=== PATIENT | male | born 1965 | race Caucasian/White ===

== ENCOUNTER 2016-12-30 06:32 | Inpatient (IN) | payer OTHER ==
[~2016-12-30] VITALS: Ht 185.4 cm; Wt 206.0 kg
[2016-12-30] VITALS (7 sets, daily range): BP systolic 108–170; BP diastolic 68–94
--- NOTE | ~2016-12-30 | PR ---
[place], [place] PROGRESS NOTE NAME: GABRIELLE BRITT UNIT #: [id number] ROOM: 401 DOCTOR: IRAIS SAMUELS MD,KARUNA BIRTHDATE: [birth year] DOS: 01/03/2017 PULMONARY FOLLOWUP SUBJECTIVE: He has been showing progressive improvement in respiratory symptom, transferred to telemetry floor yesterday. He has used the BiPAP and oxygen supplementation. Continue other previous treatments. OBJECTIVE: VITAL SIGNS: Normal temperature, respiratory rate 20, heart rate 87, blood pressure 152/78. Pulse oxygen saturation on 3 liters nasal cannula 96% saturation. HEENT: Examination shows no acute change. NECK: Supple. CARDIOVASCULAR: S1, S2 audible. LUNGS: Noted without any wheezing or crackles. Breath sounds noted, mild to moderately decreased bilaterally. ABDOMEN: Soft and obese. EXTREMITIES: Showed chronic changes. IMPRESSION: 1. Progressive resolution of acute exacerbation of chronic obstructive pulmonary disease was noted with current medical management. 2. Morbid obesity. 3. Strong suspicion of obstructive sleep apnea disorder. PLAN OF TREATMENT: The patient could be discharged home on tapering dose of prednisone and the antibiotics as well as to continue his home medication. Abstinence from tobacco use was continued to be advised. KARUNA BRAXTON MD CM:PNTRANS [id number] KARUNA SAMUELS MD 01/04/17 0019 interface
--- NOTE | ~2016-12-30 | CON ---
[place], [place] REPORT OF CONSULTATION NAME: GABRIELLE BRITT UNIT #: [id number] ROOM: 401 DOCTOR: IRAIS SAMUELS MDKARUNA BIRTHDATE: [birth year] DOS: 01/02/2017 REASON FOR CONSULTATION: To assess the patient for current acute exacerbation of chronic obstructive pulmonary disease and respiratory failure. HISTORY OF PRESENT ILLNESS: This is a 51-year-old white male who has been admitted to the hospital under the hospitalist services on 12/30/2016. He has been treated for acute exacerbation of COPD as well as epistaxis. The patient's symptoms have been present for a few days prior to the hospitalization. He has been noted without any symptoms of chest pain. The shortness of breath has been gradually decreased. He denies symptoms of hemoptysis at the present time. Denies symptoms of acute chest pain at this time of assessment. REVIEW OF SYSTEMS: CONSTITUTIONAL SYMPTOMS: He has been noted with some fatigue without symptoms of fever or chills. EYES: Denies any burning, redness, or tenderness. EARS, NOSE, THROAT SYMPTOMS: Denies any symptoms of sore throat, hoarseness, otalgia, postnasal drainage. The epistaxis which has been noted on admission has resolved. CARDIOVASCULAR: Denies anginal pain, edema or pain of the lower extremities. Edema of the lower extremity had been present on admission were noted decreased. GASTROINTESTINAL: Dysphagia, nausea, vomiting, diarrhea, abdominal pain, hematemesis, melena or hematochezia. SKIN: Denies lesions or rashes. CENTRAL NERVOUS SYSTEM: Denies dizziness, headache, diplopia or syncopal episodes. The remaining systems were reviewed with the patient, they were noted all negative. PAST MEDICAL HISTORY: Reported a history of: 1. Allergic rhinitis. 2. COPD. 3. Chronic hypoxic respiratory failure. 4. Severe obesity. 5. History of bipolar disorder. 6. History of depression. 7. Essential hypertension. SOCIAL HISTORY: The patient stated that he lives at home. He has been known with tobacco use in the past, smoked heavily, which has been discontinued few years ago. Denies history of alcohol use or any illicit drug use. PAST SURGICAL HISTORY: No known past surgical intervention. FAMILY HISTORY: Both parents have been , from coronary artery disease and myocardial infarction. MEDICATIONS: From home were noted use of ProAir HFA inhaler p.r.n. use for shortness of breath. [place], [place] REPORT OF CONSULTATION NAME: GABRIELLE BRITT UNIT #: [id number] ROOM: [facility] DOCTOR: IRAIS SAMUELS MD,KARUNA BIRTHDATE: [birth year] 1. Xanax 0.5 mg p.o. b.i.d. 2. Aspirin 81 mg p.o. daily. 3. Cogentin 0.5 mg p.o. b.i.d. 4. Symbicort 160/4.5 two puffs b.i.d. 5. Cymbalta 60 mg daily. 6. Lasix 40 mg daily. 7. Neurontin 300 mg p.o. t.i.d. 8. Prinivil 10 mg daily. 9. Loratadine 10 mg daily. 10. Meloxicam 7.5 mg b.i.d. 11. Remeron 30 mg at bedtime. 12. Zyprexa 20 mg at bedtime. 13. Potassium chloride 20 mEq p.o. b.i.d. 14. Spiriva 1 capsule inhalation daily. 15. Oxygen supplementation 3 liters nasal cannula continuous use. DRUG ALLERGIES: Reported as allergies to the Haldol causing muscle spasms. PHYSICAL EXAMINATION: GENERAL: This is a 51-year-old white male who has been currently noted resting and sitting on the chair in the Intensive Care Unit, oxygen supplementation has been used by the Venturi mask. Height of 6 feet 1 inch, weight of 454 pounds, BMI 59.9. VITAL SIGNS: Normal temperature noted last 3 days, respiratory rate 20-24, heart rate 88-105, blood pressure 180/54 to 148/90. Pulse oxygen saturation on 40% Venturi mask for 94% saturation. HEENT: Shows head was atraumatic. Eyes, nonicterus. Severe reduced posterior pharyngeal space. NECK: Supple and obese. CARDIOVASCULAR: S1, S2 audible. LUNGS: General reduction in the breath sounds. Expiratory wheezing, no crackles. ABDOMEN: Soft, nontender. EXTREMITIES: Show severe obesity, mild edema. CENTRAL NERVOUS SYSTEM: Cranial nerves 2-12 intact. No focal deficit. MUSCULOSKELETAL: Does not show any acute deformities. LABORATORY DATA: CBC was done on admission of 12/30/2016 was noted normal CBC. Lactic acid normal on 12/30/2016 on admission. PT/PTT on admission 12/30/2016 normal. CMP on 12/30/2016, glucose 109, BUN and creatinine was normal. Remaining CMP and the troponin was normal. ProBNP was noted as normal as well. Arterial blood gas on admission pH of 7.39, pCO2 of 47, pO2 47.1, unknown oxygen at that time the blood gases were taken. Arterial blood gas repeated on 12/31/2016, noted pH of 7.37, pCO2 of 44, pO2 of 68.7. Blood culture was taken on of this month showed no bacterial growth. CBC of this morning, WBC count 17.3, hemoglobin 10.3, hematocrit 31.3, platelet count noted 148,000. BMP: BUN 54, creatinine was normal. Chest x-ray just 1 view done, during the hospitalization in the Emergency Room, the patient was noted with pulmonary venous congestion. [place], [place] REPORT OF CONSULTATION NAME: GABRIELLE BRITT UNIT #: [id number] ROOM: [facility] DOCTOR: BAM OLIVARES MDM BIRTHDATE: [birth year] IMPRESSION: 1. The patient who has been admitted to the hospital with history of chronic hypoxic respiratory failure, admitted to the hospital with acute exacerbation of chronic obstructive pulmonary disease, mild pulmonary venous congestion marking noted on chest x-ray, but the proBNP was noted normal, which does suggest no evidence of congestive heart failure. 2. The patient with morbid obesity with strong suspicion of obstructive sleep apnea disorder as well with current body habitus. The patient has not been tested in the past for obstructive sleep apnea disorder. 3. Past history of having nicotine abuse and tobacco cessation few years ago. 4. Mild edema of the lower extremity may be related to right-sided heart problem, morbid obesity and chronic obstructive pulmonary disease. PLAN OF MANAGEMENT: Obtain PA and lateral chest x-ray to document resolution of the previous abnormalities noted on the chest x-ray. Continuation of the bronchodilators. The patient has been getting Solu-Medrol 60 mg q.8 hours. The dose will be decreased to 40 mg b.i.d. I encouraged the patient ambulation to assess responds to any improvement in current symptoms. Other supportive plan of management as previously ordered to be continued. Usual treatment, all other plan of management. Further treatment changes will be made based on progression of the illness. KARUNA BRAXTON MD CM:CONSTR:REPORT OF CONSULTATION 1027 01/03/17 0113 interface
[~2016-12-30 06:32] MED LIST: ADVAIR 250/501 EA INH; ALBUTEROL0.09 MG/A2 IH; ANAPROX DS550 MG PO; ASPIR-TRIN325 MG PO; ASPIRIN ADULT L81 M2 PO; AUGMENTIN 500 M1 TAB PO; AUGMENTIN 875 M1 TAB PO; AUGMENTIN 875875 MG PO; BENZTROPINE ME0.5 MG PO; CIPRO500 MG PO; COMPAZINE10 MG PO; DAYPRO600 M1 PO; DYAZIDE 25 MG-31 CAP PO; EES400 MG PO; ENALAPRIL10 MG PO; ENALAPRIL20 MG PO; HCTZ/TRIAMTEREN1 TA3 PO; HYDROCODONE BIT1 T11 PO; KEFLEX500 M1 PO; MEDROL DOSEPAK4 MG PO; NICODERM14 MG/24 H TD; NKHM; PREDNICOT10 MG PO; PREDNICOT20 MG PO; PREDNISONE10 MG PO; PREDNISONE20 MG PO; PROVENTIL0.09 MG/AC IH; PROZAC10 MG PO; PROZAC20 MG PO; ROBAXIN750 MG PO; TRAZADONE HYDR100 MG PO; VIBRAMYCIN100 MG PO; VICODIN 5/500 505 MG PO; VICODIN 500 MG-1 TAB PO; VICODIN ES 7501 TAB PO; VISTARIL25 MG PO; XANAX0.5 MG PO; ZITHROMAX Z PA250 MG PO; ZITHROMAX250 MG PO; ZYPREXA15 MG PO; ZYPREXA20 M1 PO
--- NOTE | 2016-12-30 07:09 | NUR ---
REPORT FROM DEONTE SAMPSON AT THIS TIME.
[2016-12-30 07:11] LABS: BASO # 0.1 10*3/uL (0.0-0.1); BASO % 0.9 % (0.0-1.0); EOS # 0.1 10*3/uL (0.0-0.4); EOS % 1.5 % (1.0-4.0); HEMATOCRIT 43.3 % (42.0-52.0); HEMOGLOBIN 15.1 g/dl (14.0-18.0); LYMPH # 1.4 10*3/uL (1.3-4.4); LYMPH % 16.1 % (27.0-41.0); MEAN CELL VOLUME 92.9 fl (80.0-94.0); MEAN CORPUSCULAR HGB 32.4 pg (27.0-31.0); MEAN CORPUSCULAR HGB CONC 34.9 g/dl (33.0-37.0); MEAN PLATELET VOLUME 10.8 fl (9.6-12.3); MONO # 0.6 10*3/uL (0.1-1.0); MONO % 7.2 % (3.0-9.0); NEUT # 6.6 10*3/uL (2.3-7.9); PLATELET COUNT AUTOMATED 154 10*3/uL (130-400); RED BLOOD COUNT 4.66 10*6/uL (4.50-5.90); RED CELL DISTRI WIDTH 13.5 % (0-14.5); WHITE BLOOD COUNT 8.9 10*3/uL (4.8-10.8)
[2016-12-30 07:20] LABS: ACT PARTIAL THROMBO TIME 23.3 SECONDS (20.8-31.5); INTERNATIONAL NORM RATIO 1.1 (2.0-3.5)
[2016-12-30 07:28] LABS: ALBUMIN 3.3 gm/dl (3.1-4.5); ALKALINE PHOSPHATASE 113 U/L (45-117); BUN 16 mg/dl (7-24); CHLORIDE 107 mmol/L (98-107); CPK 150 U/L (39-308); CREATININE 0.87 mg/dL (0.70-1.30); POTASSIUM 4.2 mmol/L (3.5-5.1); SGOT/AST 20 IU/L (3-35); SGPT/ALT 19 U/L (12-78); SODIUM 141 mmol/L (136-145); TOTAL PROTEIN 7.8 gm/dL (6.4-8.2)
[2016-12-30 07:29] LABS: CKMB 2.6 ng/ml (0.5-3.6)
[2016-12-30 07:44] LABS: TROPONIN I < 0.015 ng/ml (<0.045)
[2016-12-30 07:53] LABS: ABG BASE EXCESS 2.7 mmol/L (-2.0-2.0); ABG O2 SATURATION 85.7 % (95-97); ARTERIAL BLOOD GAS PCO2 46.6 mmHg (35-45); ARTERIAL BLOOD GAS PH 7.394 (7.35-7.45); ARTERIAL BLOOD GAS PO2 47.1 mmHg (80-90)
--- NOTE | 2016-12-30 08:02 | NUR ---
IN ROOM WITH DR ROMERO AT THIS ASSISTING WITH NASAL RHINO ROCKET. PATIENT TOLERATED WELL. 8.0CM PLACED INTO LEFT NOSTRIL. PATIENT HANDS CLEANED UP AT THIS TIME. PATIENT GIVEN CUP FOR SPITTING.
--- NOTE | 2016-12-30 09:10 | NUR ---
A 51, admitted to [facility], under the services of KOKO Paz DO with a diagnosis of EPISTATIS. Chief complaint is NOSE BLEED.LEFT NARE IS PACKED,PT COUGHING AND SPEWING BLOOD FROM HIS MOUTH ALL OVER THE PLACE, FROM BLOOD DRIPPING DOWN HIS THROAT Patient arrived via stretcher from ER. Monitor applied. Initial assessment completed. Vital signs taken and recorded. KOKO PAZ DO notified of admission to the unit. Orders received. See assessment for past medical history, medications and allergies. Patient and/or family oriented to unit. [facility] visitation policy reviewed. Clothing/patient valuable form completed. SHREE BOSE
--- NOTE | 2016-12-30 09:15 | NUR ---
CHANELLE SAMPSON AT BEDSIDE WITH PATIENT AT THIS TIME.
--- NOTE | 2016-12-30 11:04 | NUR ---
SOME NASAL BLEEDING CONTINUES, SO HYPERTENSION TREATED WITH LABETOLOL.
[2016-12-30] MEDS ORDERED: OXYGEN NAS (13:26)
[2016-12-30] MEDS ORDERED: PRINIVIL10 MG PO (15:39)
[2016-12-30] MEDS ORDERED: CYMBALTA20 M1 PO (15:39)
[2016-12-30] MEDS ORDERED: CYMBALTA60 MG PO (15:41)
[2016-12-30] MEDS ORDERED: MOBIC7.5 MG PO (16:06)
[2016-12-30] MEDS ORDERED: REMERON30 M1 PO (16:06)
[2016-12-30] MEDS ORDERED: NEURONTIN300 MG PO (16:12)
[2016-12-30] MEDS ORDERED: LASIX40 MG PO (16:12)
[2016-12-30] MEDS ORDERED: CLARITIN10 MG PO (16:14)
[2016-12-30] MEDS ORDERED: K-LOR 20MEQ20 ME1 PO (16:15)
[2016-12-30] MEDS ORDERED: SYMB160 INH (16:15)
[2016-12-30] MEDS ORDERED: SPIRIVA 5 CAPS18 MCG INH (16:16)
--- NOTE | 2016-12-30 18:13 | NUR ---
PREFERS NASAL OXYGEN IN HIS MOUTH.
--- NOTE | 2016-12-30 23:06 | NUR ---
PATIENT CLEANED UP AND GOWN CHANGED AT THIS TIME. PATIENT NOT SPITTING UP ANY BLOOD AT THIS TIME. PATIENT DENIES ANY PAIN. PATIENT WEARING NASAL CANULA IN MOUTH CURRENTLY DUE TO RHINO ROCKET AND TISSUE IN BOTH NARES. PULSE OX 93% CURRENTLY WILL CONTINUE TO MONITOR.
[2016-12-31] VITALS: BP 128/60
[2016-12-31 04:00] VITALS: BP 160/96
--- NOTE | 2016-12-31 04:20 | NUR ---
CALLED [facility] PATIENT PULSE OX ON 4 LITERS WAS 85%. PLACED PATIENT ON NONREBREATHER PATIENT PULSE OX NOW 94-98% PATIENT HAD COUGHED UP SOME MORE BLOOD MADE DOCTOR AWARE. PATIENT BP WAS ALSO UP AT 160/96 LABETALOL GIVEN. INFORMED DOCTOR PATRIENT HAS NOT URINATED ALL NIGHT I BLADDER SCANNED HIM FOR 643. DOCTOR ELSY MADE AWARE OF BLADDER SCAN RESULTS HE SAID SINCE HE DOES NOT HAVE ANY PRESSURE THAT HE NEEDS TO JUST WAIT AND SEE IF HE HAS TO GO ON HIS OWN.
[2016-12-31 04:55] LABS: BASO % 0.1 % (0.0-1.0); LYMPH # 1.8 10*3/uL (1.3-4.4); LYMPH % 9.5 % (27.0-41.0); MEAN CELL VOLUME 94.8 fl (80.0-94.0); MEAN CORPUSCULAR HGB 32.8 pg (27.0-31.0); MEAN CORPUSCULAR HGB CONC 34.6 g/dl (33.0-37.0); MEAN PLATELET VOLUME 10.8 fl (9.6-12.3); MONO % 5.4 % (3.0-9.0); NEUT # 16.2 10*3/uL (2.3-7.9); NEUT % 84.4 % (47.0-73.0); PLATELET COUNT AUTOMATED 193 10*3/uL (130-400); RED BLOOD COUNT 3.81 10*6/uL (4.50-5.90); RED CELL DISTRI WIDTH 13.8 % (0-14.5); WHITE BLOOD COUNT 19.2 10*3/uL (4.8-10.8)
[2016-12-31 04:57] LABS: HEMATOCRIT 36.1 % (42.0-52.0); HEMOGLOBIN 12.5 g/dl (14.0-18.0)
[2016-12-31 05:04] LABS: ABG BASE EXCESS 0.1 mmol/L (-2.0-2.0); ABG HCO3 25.1 mmol/l (22-26); ABG O2 SATURATION 94.1 % (95-97); ARTERIAL BLOOD GAS PCO2 44.2 mmHg (35-45); ARTERIAL BLOOD GAS PH 7.372 (7.35-7.45); ARTERIAL BLOOD GAS PO2 68.7 mmHg (80-90)
[2016-12-31 05:10] LABS: ALBUMIN 3.2 gm/dl (3.1-4.5); ALKALINE PHOSPHATASE 82 U/L (45-117); CHLORIDE 108 mmol/L (98-107); CREATININE 1.04 mg/dL (0.70-1.30); MAGNESIUM 2.4 mg/dL (1.5-2.1); PHOSPHOROUS 3.1 mg/dL (2.5-4.9); POTASSIUM 4.4 mmol/L (3.5-5.1); SGOT/AST 10 IU/L (3-35); SGPT/ALT 17 U/L (12-78); SODIUM 141 mmol/L (136-145); TOTAL PROTEIN 7.2 gm/dL (6.4-8.2)
[2016-12-31 05:12] LABS: BUN 47 mg/dl (7-24)
[2016-12-31 05:17] LABS: THYROID STIM HORMONE (HS) 0.655 uIU/ml (0.358-4.75)
[2016-12-31 05:19] LABS: FREE T4 0.97 ng/dl (0.76-1.46)
[2016-12-31 08:00] VITALS: BP 160/94
[2016-12-31 08:32] LABS: VITAMIN D, 25-HYDROXY 22.5 ng/mL (30-100)
--- NOTE | 2016-12-31 10:09 | NUR ---
BLEEDING VERY MINIMAL NOW FROM NARES.
[2016-12-31 12:00] VITALS: BP 160/88
[2016-12-31 16:00] VITALS: BP 140/78
[2016-12-31 20:00] VITALS: BP 108/68
[2017-01-01 00:07] VITALS: BP 118/58
--- NOTE | 2017-01-01 01:30 | NUR ---
PATIENT BATHED BED CHANGED AND NEW GOWN ON PATIENT SITTING UP IN BED WITH VENTURI MASK ON.
[2017-01-01 04:00] VITALS: BP 118/58
[2017-01-01 04:18] LABS: HEMATOCRIT 33.7 % (42.0-52.0); HEMOGLOBIN 11.1 g/dl (14.0-18.0); MEAN CORPUSCULAR HGB 31.6 pg (27.0-31.0); MEAN CORPUSCULAR HGB CONC 32.9 g/dl (33.0-37.0); MEAN PLATELET VOLUME 11.6 fl (9.6-12.3); PLATELET COUNT AUTOMATED 169 10*3/uL (130-400); RED BLOOD COUNT 3.51 10*6/uL (4.50-5.90); RED CELL DISTRI WIDTH 14.3 % (0-14.5); WHITE BLOOD COUNT 22.8 10*3/uL (4.8-10.8)
[2017-01-01 04:28] LABS: BUN 68 mg/dl (7-24); CHLORIDE 109 mmol/L (98-107); CREATININE 1.33 mg/dL (0.70-1.30); SODIUM 140 mmol/L (136-145)
[2017-01-01 04:43] LABS: PLATELET SUFFICIENCY NORMAL (NORMAL); TOTAL CELLS COUNTED 100 #CELLS
--- NOTE | 2017-01-01 06:16 | NUR ---
PATIENT UP TO RESTROOM PATIENT HAD BOWEL MOVEMENT AND URINATED. PATIENT SOB WITH EXHERTION.PATIENT SITTING ON THE SIDE OF THE BED.
--- NOTE | 2017-01-01 06:21 | NUR ---
PATIENT HAS HAD NO BLEEDING OR COMPLAINTS OF BLEEDING THROUGH OUT THE NIGHT PATIENT IS NID 90'S PULSE OX WITH 50% VENTURI MASK. PATIENT SOB WITH MINIMAL EXHERTION.
[2017-01-01 08:00] VITALS: BP 110/60
[2017-01-01 12:00] VITALS: BP 130/60
--- NOTE | 2017-01-01 12:35 | NUR ---
NOTIFIED OF NEW CONSULT ORDER.
--- NOTE | 2017-01-01 13:20 | NUR ---
HERE AND REMOVED RHINOROCKET FROM LEFT NARE. PATIENT TOLERATED WELL. NO BLEEDING NOTED.
[2017-01-01 16:00] VITALS: BP 118/54
--- NOTE | 2017-01-01 19:52 | NUR ---
PT. RESTING IN CHAIR. HEP LOCK IN LH AND RH ASYMPT. LUNGS DIMINISHED BUT CLEAR BILAT, PULSE OX 93% ON 40% VENTURI MASK. ABDOMEN SOFTLY DISTENDED AND NORMO. BILAT TRACE LOWER EXTREMITY EDEMA, EDEMA VS OBESITY. RALEIGH WILDE RN
[2017-01-01 20:00] VITALS: BP 118/68
--- NOTE | 2017-01-01 20:48 | NUR ---
PT. GIVEN REMERON ORDERED PER PT. REQUEST FOR SLEEP AIDE. PT. ASSISTED WITH BED BATH AND BED LINEN CHANGE, TOLERATED WELL. RALEIGH WILDE RN
--- NOTE | 2017-01-01 23:10 | NUR ---
PT. SLEEPING, REMERON EFFECTIVE.
[2017-01-02] VITALS: BP 129/62
[2017-01-02 04:00] VITALS: BP 129/60
[2017-01-02 04:51] LABS: BASO % 0.1 % (0.0-1.0); HEMATOCRIT 31.3 % (42.0-52.0); HEMOGLOBIN 10.3 g/dl (14.0-18.0); LYMPH # 1.4 10*3/uL (1.3-4.4); MEAN CELL VOLUME 97.5 fl (80.0-94.0); MEAN CORPUSCULAR HGB 32.1 pg (27.0-31.0); MEAN CORPUSCULAR HGB CONC 32.9 g/dl (33.0-37.0); MEAN PLATELET VOLUME 11.2 fl (9.6-12.3); MONO # 0.7 10*3/uL (0.1-1.0); MONO % 3.8 % (3.0-9.0); NEUT # 15.1 10*3/uL (2.3-7.9); NEUT % 87.3 % (47.0-73.0); PLATELET COUNT AUTOMATED 148 10*3/uL (130-400); RED BLOOD COUNT 3.21 10*6/uL (4.50-5.90); RED CELL DISTRI WIDTH 14.3 % (0-14.5); WHITE BLOOD COUNT 17.3 10*3/uL (4.8-10.8)
[2017-01-02 05:04] LABS: CHLORIDE 108 mmol/L (98-107); CREATININE 0.92 mg/dL (0.70-1.30); POTASSIUM 4.8 mmol/L (3.5-5.1); SODIUM 142 mmol/L (136-145)
[2017-01-02 05:06] LABS: BUN 54 mg/dl (7-24)
[2017-01-02 08:00] VITALS: BP 148/90
[2017-01-02 12:00] VITALS: BP 140/80
[2017-01-02 16:00] VITALS: BP 140/80
--- NOTE | 2017-01-02 18:04 | NUR ---
TRANSFERED VIA BED TO ROOM 401.
--- NOTE | 2017-01-02 19:30 | NUR ---
PT. AWAKE, ALERT, AND ORIENTED X 3. PT. IN BED AT THIS TIME. PT. CURRENTLY DENIES CP, SOB, NOSE BLEED. CALL LIGHT FOR ASSISTANCE, BED IN LOWEST POSITION, WHEELS LOCKED. SEE SHIFT ASSESSMENT.
[2017-01-02 20:05] VITALS: BP 132/68
[2017-01-03] VITALS: BP 116/80
[2017-01-03 06:09] LABS: HEMATOCRIT 32.3 % (42.0-52.0); HEMOGLOBIN 10.5 g/dl (14.0-18.0); MEAN CELL VOLUME 97.9 fl (80.0-94.0); MEAN CORPUSCULAR HGB 31.8 pg (27.0-31.0); MEAN CORPUSCULAR HGB CONC 32.5 g/dl (33.0-37.0); MEAN PLATELET VOLUME 11.3 fl (9.6-12.3); PLATELET COUNT AUTOMATED 166 10*3/uL (130-400); RED CELL DISTRI WIDTH 14.2 % (0-14.5); WHITE BLOOD COUNT 16.7 10*3/uL (4.8-10.8)
[2017-01-03 06:32] LABS: PLATELET SUFFICIENCY NORMAL (NORMAL); TOTAL CELLS COUNTED 100 #CELLS
[2017-01-03 06:34] LABS: CHLORIDE 107 mmol/L (98-107); CREATININE 0.86 mg/dL (0.70-1.30); POTASSIUM 4.5 mmol/L (3.5-5.1); SODIUM 142 mmol/L (136-145)
[2017-01-03 06:35] LABS: BUN 37 mg/dl (7-24)
[2017-01-03 08:00] VITALS: BP 152/78
--- NOTE | 2017-01-03 09:00 | NUR ---
PT NEEDS PORTABLE O2 TANK TO GET HOME TODAY. HAS NOONE TO BRING HIM PORTABLE FROM HOME. CALLED [facility] AND THEY WILL BRING HIM A PORTABLE TANK BUT CANNOT GIVE A TIME FRAME FOR DELIVERY. BUT IT WILL BE TODAY PER CHANELLE THERE. PT AND DR MONTELONGO INFORMED.
[2017-01-03] MEDS ORDERED: DOXYCYCLINE100 M3 PO (09:08)
[2017-01-03] MEDS ORDERED: PREDNISONE10 MG PO (09:08)
--- NOTE | 2017-01-03 13:07 | NUR ---
Discharge instructions reviewed with patient/family. Patient receptive and verbalizes understanding. Follow-up care arranged. Written instructions given to patient/family. TONG BARROW
== END 2017-01-03 13:07 | disposition home or self-care (01) | DRG 871 ==
LOC: ED 06:32 → ICCU 07:53 → EDHOLD 07:53 → ICCU 08:05 → 4E 01-02 18:02
PROVIDERS: Emergency Medicine; Internal Medicine; Student in an Organized Health Care Education/Training Program; ADMIT Internal Medicine
PROC: 2Y41X5Z Packing of Nasal Region using Packing Material (ICD-10-PCS; principal; 2016-12-30)
PROC: 2Y51X5Z Removal of Nasal Packing Material (ICD-10-PCS; 2017-01-01)
DX: A41.9 Sepsis, unspecified organism (principal); J18.9 Pneumonia, unspecified organism; J96.21 Acute and chronic respiratory failure with hypoxia; J96.22 Acute and chronic respiratory failure with hypercapnia; J44.1 Chronic obstructive pulmonary disease with (acute) exacerbation; J44.0 Chronic obstructive pulmonary disease with (acute) lower respiratory infection; N17.9 Acute kidney failure, unspecified; G47.33 Obstructive sleep apnea (adult) (pediatric); E66.01 Morbid (severe) obesity due to excess calories; T50.1X5A Adverse effect of loop [high-ceiling] diuretics, initial encounter; F32.9 Major depressive disorder, single episode, unspecified; R04.0 Epistaxis; I10 Essential (primary) hypertension; R73.9 Hyperglycemia, unspecified; Z88.8 Allergy status to other drugs, medicaments and biological substances; Z82.49 Family history of ischemic heart disease and other diseases of the circulatory system; Z79.82 Long term (current) use of aspirin; Z79.899 Other long term (current) drug therapy; Z79.51 Long term (current) use of inhaled steroids; Z99.81 Dependence on supplemental oxygen; Z87.891 Personal history of nicotine dependence; Y92.89 Other specified places as the place of occurrence of the external cause; Z68.23 Body mass index [BMI] 23.0-23.9, adult

== ENCOUNTER → 2017-02-09 | Outpatient (CLI) | payer OTHER ==
[~2017-02-09] MED LIST changes: +CLARITIN10 MG PO; +CYMBALTA20 M1 PO; +CYMBALTA60 MG PO; +DOXYCYCLINE100 M3 PO; +K-LOR 20MEQ20 ME1 PO; +LASIX40 MG PO; +MOBIC7.5 MG PO; +NEURONTIN300 MG PO; +OXYGEN NAS; +PRINIVIL10 MG PO; +REMERON30 M1 PO; +SPIRIVA 5 CAPS18 MCG INH; +SYMB160 INH
== END | disposition home or self-care (01) ==
LOC: RAD 08:53
DX: M17.0 Bilateral primary osteoarthritis of knee (principal); M47.897 Other spondylosis, lumbosacral region; M48.061 Spinal stenosis, lumbar region without neurogenic claudication

== ENCOUNTER 2017-05-23 10:22 | Emergency (ER) | payer OTHER ==
[~2017-05-23] VITALS: Ht 185.4 cm; Wt 204.1 kg
[2017-05-23 10:28] VITALS: BP 139/80
[2017-05-23] MEDS ORDERED: CEPHALEXIN500 M1 PO (10:39)
== END 2017-05-23 10:53 | disposition home or self-care (01) ==
LOC: ED 10:22
DX: S80.812A Abrasion, left lower leg, initial encounter (principal); F10.10 Alcohol abuse, uncomplicated; Z88.8 Allergy status to other drugs, medicaments and biological substances; Z79.82 Long term (current) use of aspirin; Z79.899 Other long term (current) drug therapy; X58.XXXA Exposure to other specified factors, initial encounter; Y93.89 Activity, other specified; Y92.89 Other specified places as the place of occurrence of the external cause; Y99.8 Other external cause status

== ENCOUNTER → 2017-06-20 | Day surgery (SDC) | payer OTHER ==
[~2017-06-20] VITALS: Ht 185.4 cm; Wt 199.6 kg
[~2017-06-20] MED LIST changes: +CEPHALEXIN500 M1 PO; +NORCO 5-325 TA1 EACH PO; +PENICILLIN-VK500 MG PO
--- NOTE | ~2017-06-20 | O ---
[place], [place] OPERATIVE NOTE NAME: GABRIELLE BRITT UNIT #: [id number] ROOM: DOCTOR: CHELLE COPELAND DMD BIRTHDATE: [birth year] DOS: PREOPERATIVE DIAGNOSES: Caries, periodontal disease and anxiety. POSTOPERATIVE DIAGNOSES: Caries, periodontal disease and anxiety. ANESTHESIA: General anesthesia with endotracheal intubation. FLUIDS: Minimal. ESTIMATED BLOOD LOSS: Minimal. COMPLICATIONS: None. CONDITION: To PACU, stable. DESCRIPTION OF PROCEDURE: The patient was brought to the OR and placed in supine position. IV and EKG lines were placed. Endotracheal intubation and general anesthesia was administered. The patient was prepped and draped for oral procedures. Risks and benefits were explained to the patient prior to surgery. Clinical exam and x-rays taken determined nonrestorable maxillary and mandibular dentition. PROCEDURES PERFORMED: Complete extraction of teeth #2, 5, 11, 12, 13, 19, 20, 21, 23, 24, 25, 26, 27, 28. Full thickness flaps in all 4 quadrants with moderate alveoplasty. The patient was notified that impacted tooth #1 was going to the left due to risk of sinus injury. Sutured with 4-0 Vicryl. Lavaged x 2. Throat pack removed. The patient left the OR in good condition and went to the PACU. CHELLE COPELAND DMD CM:OPRECORD:OPERATIVE NOTE 2 CHELLE COPELAND DMD 06/22/17 0922 interface
[2017-06-20 09:00] VITALS: BP 168/94
[2017-06-20 11:30] VITALS: BP 130/70
[2017-06-20 11:45] VITALS: BP 155/87
[2017-06-20 11:58] VITALS: BP 147/87
[2017-06-20 12:15] VITALS: BP 137/99
[2017-06-20 12:28] VITALS: BP 156/91
== END | disposition home or self-care (01) ==
LOC: SDC 06-16 08:45
DX: K02.9 Dental caries, unspecified (principal); K05.6 Periodontal disease, unspecified; F41.9 Anxiety disorder, unspecified; Z87.891 Personal history of nicotine dependence; Z79.899 Other long term (current) drug therapy; I10 Essential (primary) hypertension; Z82.49 Family history of ischemic heart disease and other diseases of the circulatory system; E66.01 Morbid (severe) obesity due to excess calories; Z68.44 Body mass index [BMI] 60.0-69.9, adult; J44.9 Chronic obstructive pulmonary disease, unspecified; F32.9 Major depressive disorder, single episode, unspecified; Z88.8 Allergy status to other drugs, medicaments and biological substances

== ENCOUNTER 2017-07-06 07:30 | Emergency (ER) | payer OTHER ==
[~2017-07-06] VITALS: Ht 185.4 cm; Wt 204.1 kg
[2017-07-06 08:39] VITALS: BP 161/90
[2017-07-06] MEDS ORDERED: VIBRAMYCIN100 MG PO (09:17)
[2017-07-06] MEDS ORDERED: PREDNISONE20 M1 PO (09:17)
[2017-07-06] MEDS ORDERED: DUONEB 3 MG/3 ML3 M1 INH (09:17)
== END 2017-07-06 09:30 | disposition home or self-care (01) ==
LOC: ED 07:30
DX: J44.1 Chronic obstructive pulmonary disease with (acute) exacerbation (principal); I10 Essential (primary) hypertension; Z87.01 Personal history of pneumonia (recurrent); Z87.891 Personal history of nicotine dependence; Z79.899 Other long term (current) drug therapy; Z79.82 Long term (current) use of aspirin; Z88.8 Allergy status to other drugs, medicaments and biological substances

== ENCOUNTER → 2017-07-25 | Outpatient (CLI) | payer OTHER ==
[~2017-07-25] MED LIST changes: +DUONEB 3 MG/3 ML3 M1 INH; +PREDNISONE20 M1 PO
== END | disposition home or self-care (01) ==
LOC: US 07-19 13:30
DX: L03.116 Cellulitis of left lower limb (principal); L03.115 Cellulitis of right lower limb; M79.662 Pain in left lower leg; M79.661 Pain in right lower leg; R60.0 Localized edema; I73.9 Peripheral vascular disease, unspecified

== ENCOUNTER → 2017-09-19 | Outpatient (CLI) | payer OTHER | END | disposition home or self-care (01) | LOC: WOUNDCARE 08:47 | DX: I87.331 Chronic venous hypertension (idiopathic) with ulcer and inflammation of right lower extremity (principal); L97.811 Non-pressure chronic ulcer of other part of right lower leg limited to breakdown of skin; L97.311 Non-pressure chronic ulcer of right ankle limited to breakdown of skin; G90.09 Other idiopathic peripheral autonomic neuropathy; I73.9 Peripheral vascular disease, unspecified; F17.210 Nicotine dependence, cigarettes, uncomplicated ==

== ENCOUNTER → 2017-10-05 | Outpatient (CLI) | payer OTHER | LOC: WOUNDCARE 01:48 | DX: I87.331 Chronic venous hypertension (idiopathic) with ulcer and inflammation of right lower extremity (principal); L97.311 Non-pressure chronic ulcer of right ankle limited to breakdown of skin; I87.2 Venous insufficiency (chronic) (peripheral); G90.09 Other idiopathic peripheral autonomic neuropathy; I73.9 Peripheral vascular disease, unspecified; F17.200 Nicotine dependence, unspecified, uncomplicated ==

== ENCOUNTER → 2017-10-12 | Outpatient (CLI) | payer OTHER | END | disposition home or self-care (01) | LOC: WOUNDCARE 03:59 | DX: I87.331 Chronic venous hypertension (idiopathic) with ulcer and inflammation of right lower extremity (principal); L97.811 Non-pressure chronic ulcer of other part of right lower leg limited to breakdown of skin; G90.09 Other idiopathic peripheral autonomic neuropathy; I73.9 Peripheral vascular disease, unspecified; F17.210 Nicotine dependence, cigarettes, uncomplicated ==

== ENCOUNTER → 2017-11-06 | Outpatient (CLI) | payer OTHER | END | disposition home or self-care (01) | LOC: WOUNDCARE 05:22 | DX: I87.331 Chronic venous hypertension (idiopathic) with ulcer and inflammation of right lower extremity (principal); L97.311 Non-pressure chronic ulcer of right ankle limited to breakdown of skin; L97.811 Non-pressure chronic ulcer of other part of right lower leg limited to breakdown of skin; I73.9 Peripheral vascular disease, unspecified; G90.09 Other idiopathic peripheral autonomic neuropathy; I10 Essential (primary) hypertension; F17.210 Nicotine dependence, cigarettes, uncomplicated; Z71.6 Tobacco abuse counseling ==

== ENCOUNTER → 2017-11-23 | Outpatient (CLI) | payer OTHER | END | disposition home or self-care (01) | LOC: WOUNDCARE 03:36 | DX: I87.331 Chronic venous hypertension (idiopathic) with ulcer and inflammation of right lower extremity (principal); L97.311 Non-pressure chronic ulcer of right ankle limited to breakdown of skin; L97.811 Non-pressure chronic ulcer of other part of right lower leg limited to breakdown of skin; I73.9 Peripheral vascular disease, unspecified; G90.09 Other idiopathic peripheral autonomic neuropathy; F17.210 Nicotine dependence, cigarettes, uncomplicated ==

== ENCOUNTER → 2020-07-01 | Outpatient (CLI) | payer OTHER ==
[2020-07-01 11:31] LABS: ALBUMIN 3.6 gm/dl (3.1-4.5); ALKALINE PHOSPHATASE 92 U/L (45-117); BUN 10 mg/dl (7-24); CHLORIDE 105 mmol/L (98-107); CHOLESTEROL 142 mg/dL (<200); CREATININE 1.11 mg/dL (0.70-1.30); FREE T4 1.03 ng/dl (0.76-1.46); HDL CHOLESTEROL 53 mg/dl (40-60); LDL CHOLESTEROL 76 mg/dL (9-159); POTASSIUM 4.1 mmol/L (3.5-5.1); SGOT/AST 16 IU/L (3-35); SGPT/ALT 20 U/L (12-78); SODIUM 137 mmol/L (136-145); TOTAL PROTEIN 8.1 gm/dL (6.4-8.2); TRIGLYCERIDES 63 mg/dl (<150); VLDL CHOLESTEROL 13 mg/dL (6-40)
== END | disposition home or self-care (01) ==
LOC: LAB 10:41
PROVIDERS: ATTEND Internal Medicine
DX: I10 Essential (primary) hypertension (principal)

== ENCOUNTER 2021-09-16 09:05 | Inpatient (IN) | payer OTHER ==
[2021-09-16] VITALS (20 sets, daily range): BP systolic 120–165; BP diastolic 44–100
[~2021-09-16] VITALS: Ht 185.4 cm; Wt 171.5 kg
[2021-09-16 10:20] LABS: MEAN CELL VOLUME 59.6 fl (80.0-94.0); MEAN CORPUSCULAR HGB 13.9 pg (27.0-31.0); MEAN CORPUSCULAR HGB CONC 23.4 g/dl (33.0-37.0); MEAN PLATELET VOLUME 9.4 fl (9.6-12.3); NUCLEATED RED BLOOD CELL 0.1 10*3/uL (0.0-0.0); NUCLEATED RED BLOOD CELL 1.3 % (0.0-0.0); PLATELET COUNT AUTOMATED 284 10*3/uL (130-400); RED CELL DISTRI WIDTH 24.8 % (0-14.5)
[2021-09-16 10:24] LABS: ALKALINE PHOSPHATASE 57 U/L (45-117); BUN 11 mg/dl (7-24); CHLORIDE 108 mmol/L (98-107); CREATININE 1.06 mg/dL (0.70-1.30); POTASSIUM 3.7 mmol/L (3.5-5.1); SGOT/AST 15 IU/L (3-35); SGPT/ALT 17 U/L (12-78); SODIUM 138 mmol/L (136-145); TOTAL PROTEIN 7.4 gm/dL (6.4-8.2)
[2021-09-16 10:29] LABS: HEMATOCRIT 13.7 % (42.0-52.0); MANUAL DIFF REFLEX YES
[2021-09-16 10:45] LABS: BASOPHILS 1 % (0-1); TOTAL CELLS COUNTED 100 #CELLS
[2021-09-16 10:47] LABS: PLATELET SUFFICIENCY NORMAL (NORMAL)
[2021-09-16] MEDS ORDERED: COGENTIN0.5 MG PO (15:58)
[2021-09-16] MEDS ORDERED: CYCLOBENZAPRINE10 MG PO (15:58)
[2021-09-17] VITALS (16 sets, daily range): BP systolic 112–183; BP diastolic 52–108
[2021-09-17 06:27] LABS: HEMATOCRIT 22.4 % (42.0-52.0); MEAN CORPUSCULAR HGB 18.3 pg (27.0-31.0); MEAN CORPUSCULAR HGB CONC 26.8 g/dl (33.0-37.0); MEAN PLATELET VOLUME 9.9 fl (9.6-12.3); NUCLEATED RED BLOOD CELL 0.1 10*3/uL (0.0-0.0); NUCLEATED RED BLOOD CELL 2.6 % (0.0-0.0); PLATELET COUNT AUTOMATED 251 10*3/uL (130-400); RED BLOOD COUNT 3.27 10*6/uL (4.50-5.90); RED CELL DISTRI WIDTH 30.2 % (0-14.5); WHITE BLOOD COUNT 4.7 10*3/uL (4.8-10.8)
[2021-09-17 06:28] LABS: MANUAL DIFF REFLEX YES
[2021-09-17 06:30] LABS: MEAN CELL VOLUME 68.5 fl (80.0-94.0)
[2021-09-17 06:31] LABS: BUN 9 mg/dl (7-24); CHLORIDE 109 mmol/L (98-107); CREATININE 0.91 mg/dL (0.70-1.30); SODIUM 139 mmol/L (136-145)
[2021-09-17 07:07] LABS: MICROCYTOSIS MODERATE; OVALOCYTES FEW; PLATELET SUFFICIENCY NORMAL (NORMAL); POLYCHROMASIA SLIGHT; ROULEAUX SLIGHT; SCHISTOCYTES FEW; TARGET CELLS FEW; TOTAL CELLS COUNTED 100 #CELLS
[2021-09-18] VITALS (17 sets, daily range): BP systolic 115–1143; BP diastolic 50–104
[2021-09-18 05:33] LABS: BUN 17 mg/dl (7-24); CHLORIDE 109 mmol/L (98-107); CREATININE 1.04 mg/dL (0.70-1.30); POTASSIUM 3.8 mmol/L (3.5-5.1); SODIUM 141 mmol/L (136-145)
[2021-09-18 06:14] LABS: MEAN CELL VOLUME 69.3 fl (80.0-94.0); MEAN CORPUSCULAR HGB 19.3 pg (27.0-31.0); MEAN CORPUSCULAR HGB CONC 27.9 g/dl (33.0-37.0); MEAN PLATELET VOLUME 9.5 fl (9.6-12.3); NUCLEATED RED BLOOD CELL 0.2 10*3/uL (0.0-0.0); PLATELET COUNT AUTOMATED 216 10*3/uL (130-400); RED CELL DISTRI WIDTH 31.4 % (0-14.5); WHITE BLOOD COUNT 7.6 10*3/uL (4.8-10.8)
[2021-09-18 06:24] LABS: HEMATOCRIT 20.1 % (42.0-52.0); MANUAL DIFF REFLEX YES
[2021-09-18 06:53] LABS: BASOPHILS 1 % (0-1); MICROCYTOSIS SLIGHT; PLATELET SUFFICIENCY NORMAL (NORMAL); POLYCHROMASIA SLIGHT; TOTAL CELLS COUNTED 100 #CELLS
[2021-09-19] VITALS (7 sets, daily range): BP systolic 125–164; BP diastolic 52–97
[2021-09-19 05:21] LABS: ALKALINE PHOSPHATASE 52 U/L (45-117); BUN 14 mg/dl (7-24); CHLORIDE 106 mmol/L (98-107); CREATININE 0.84 mg/dL (0.70-1.30); POTASSIUM 4.6 mmol/L (3.5-5.1); SGOT/AST 15 IU/L (3-35); SGPT/ALT 13 U/L (12-78); SODIUM 137 mmol/L (136-145); TOTAL PROTEIN 6.8 gm/dL (6.4-8.2)
[2021-09-19 06:14] LABS: HEMATOCRIT 24.7 % (42.0-52.0); MEAN CORPUSCULAR HGB CONC 28.3 g/dl (33.0-37.0); NUCLEATED RED BLOOD CELL 0.2 10*3/uL (0.0-0.0); NUCLEATED RED BLOOD CELL 3.3 % (0.0-0.0); PLATELET COUNT AUTOMATED 167 10*3/uL (130-400); RED BLOOD COUNT 3.34 10*6/uL (4.50-5.90); RED CELL DISTRI WIDTH 31.4 % (0-14.5)
[2021-09-19 06:22] LABS: MANUAL DIFF REFLEX YES
[2021-09-19 06:42] LABS: BASOPHILS 2 % (0-1); MICROCYTOSIS SLIGHT; TOTAL CELLS COUNTED 100 #CELLS
[2021-09-19 06:43] LABS: OVALOCYTES FEW
[2021-09-19 06:44] LABS: PLATELET SUFFICIENCY NORMAL (NORMAL)
[2021-09-19 13:51] LABS: BILIRUBIN Negative (Negative); BLOOD Negative (Negative); CLARITY Clear (Clear); COLOR Yellow (Yellow); GLUCOSE Negative (Negative); KETONE Negative (Negative); LEUKO ESTERASE Negative (Negative); NITRITE Negative (Negative); PH 7.5 (4.5-8.0); SPECIFIC GRAVITY <= 1.005 (1.001-1.030); UROBILINOGEN 0.2 E.U./dl (0.0-1.0)
[2021-09-19 14:15] LABS: EPITHELIAL CELLS 0-2; WBC 0-2 wbc/hpf (0-5)
[2021-09-19 23:06] LABS: BUN 18 mg/dl (7-24); CHLORIDE 99 mmol/L (98-107); SODIUM 131 mmol/L (136-145)
[2021-09-19 23:56] LABS: HEMATOCRIT 27.2 % (42.0-52.0); MEAN CORPUSCULAR HGB 20.9 pg (27.0-31.0); NUCLEATED RED BLOOD CELL 0.3 10*3/uL (0.0-0.0); NUCLEATED RED BLOOD CELL 2.5 % (0.0-0.0); PLATELET COUNT AUTOMATED 137 10*3/uL (130-400); RED BLOOD COUNT 3.78 10*6/uL (4.50-5.90); WHITE BLOOD COUNT 12.2 10*3/uL (4.8-10.8)
[2021-09-19 23:57] LABS: MANUAL DIFF REFLEX YES
[2021-09-20 00:01] VITALS: BP 93/45
[2021-09-20 00:14] LABS: PLATELET SUFFICIENCY LOW (NORMAL); POLYCHROMASIA SLIGHT; TOTAL CELLS COUNTED 100 #CELLS
[2021-09-20 00:15] LABS: MICROCYTOSIS MODERATE
[2021-09-20 00:29] LABS: ABG BASE EXCESS 0.3 mmol/L (-2.0-2.0); ARTERIAL BLOOD GAS PH 7.434 (7.35-7.45); ARTERIAL BLOOD GAS PO2 100.2 (80-90)
[2021-09-20 04:00] VITALS: BP 97/53
[2021-09-20 05:09] LABS: BUN 21 mg/dl (7-24); CHLORIDE 97 mmol/L (98-107); CREATININE 1.26 mg/dL (0.70-1.30); POTASSIUM 3.7 mmol/L (3.5-5.1); SODIUM 130 mmol/L (136-145)
[2021-09-20 07:07] LABS: HEMATOCRIT 25.9 % (42.0-52.0); MEAN CELL VOLUME 73.8 fl (80.0-94.0); MEAN CORPUSCULAR HGB 21.1 pg (27.0-31.0); MEAN CORPUSCULAR HGB CONC 28.6 g/dl (33.0-37.0); NUCLEATED RED BLOOD CELL 0.3 10*3/uL (0.0-0.0); NUCLEATED RED BLOOD CELL 1.7 % (0.0-0.0); PLATELET COUNT AUTOMATED 140 10*3/uL (130-400); RED BLOOD COUNT 3.51 10*6/uL (4.50-5.90); WHITE BLOOD COUNT 16.9 10*3/uL (4.8-10.8)
[2021-09-20 07:15] LABS: MANUAL DIFF REFLEX YES
[2021-09-20 07:57] LABS: MICROCYTOSIS MODERATE; PLATELET SUFFICIENCY NORMAL (NORMAL); POLYCHROMASIA SLIGHT; TOTAL CELLS COUNTED 100 #CELLS
[2021-09-20 08:00] VITALS: BP 110/64
[2021-09-20 12:00] VITALS: BP 109/64
[2021-09-20 16:00] VITALS: BP 99/52
[2021-09-20 20:00] VITALS: BP 94/54
[2021-09-21] VITALS: BP 98/54
[2021-09-21 04:00] VITALS: BP 93/54
[2021-09-21 08:00] VITALS: BP 92/54
[2021-09-21 08:00] LABS: HEMATOCRIT 28.1 % (42.0-52.0); MEAN CELL VOLUME 74.7 fl (80.0-94.0); MEAN CORPUSCULAR HGB CONC 28.1 g/dl (33.0-37.0); PLATELET COUNT AUTOMATED 116 10*3/uL (130-400); RED BLOOD COUNT 3.76 10*6/uL (4.50-5.90); WHITE BLOOD COUNT 6.1 10*3/uL (4.8-10.8)
[2021-09-21 08:17] LABS: ALKALINE PHOSPHATASE 49 U/L (45-117); BUN 22 mg/dl (7-24); CHLORIDE 100 mmol/L (98-107); CREATININE 1.01 mg/dL (0.70-1.30); LDH 269 U/L (87-241); POTASSIUM 3.7 mmol/L (3.5-5.1); SGOT/AST 36 IU/L (3-35); SGPT/ALT 26 U/L (12-78); SODIUM 135 mmol/L (136-145); TOTAL PROTEIN 7.5 gm/dL (6.4-8.2)
[2021-09-21 08:28] LABS: MANUAL DIFF REFLEX YES
[2021-09-21 08:30] LABS: PLATELET SUFFICIENCY LOW (NORMAL); TOTAL CELLS COUNTED 100 #CELLS
[2021-09-21 08:31] LABS: POLYCHROMASIA MODERATE
[2021-09-21 12:00] VITALS: BP 104/64
[2021-09-21 16:00] VITALS: BP 92/54
[2021-09-21 20:00] VITALS: BP 104/56
[2021-09-22] VITALS: BP 118/55
[2021-09-22 04:00] VITALS: BP 127/68
[2021-09-22 05:19] LABS: ALKALINE PHOSPHATASE 45 U/L (45-117); BUN 16 mg/dl (7-24); CHLORIDE 106 mmol/L (98-107); CREATININE 0.76 mg/dL (0.70-1.30); LDH 220 U/L (87-241); POTASSIUM 3.7 mmol/L (3.5-5.1); SGOT/AST 22 IU/L (3-35); SGPT/ALT 21 U/L (12-78); SODIUM 138 mmol/L (136-145); TOTAL PROTEIN 7.1 gm/dL (6.4-8.2)
[2021-09-22 06:25] LABS: HEMATOCRIT 26.5 % (42.0-52.0); MEAN CELL VOLUME 76.8 fl (80.0-94.0); MEAN CORPUSCULAR HGB 20.9 pg (27.0-31.0); MEAN CORPUSCULAR HGB CONC 27.2 g/dl (33.0-37.0); NUCLEATED RED BLOOD CELL 0.3 % (0.0-0.0); PLATELET COUNT AUTOMATED 113 10*3/uL (130-400); RED BLOOD COUNT 3.45 10*6/uL (4.50-5.90); WHITE BLOOD COUNT 6.7 10*3/uL (4.8-10.8)
[2021-09-22 06:34] LABS: MANUAL DIFF REFLEX YES
[2021-09-22 07:07] LABS: MICROCYTOSIS SLIGHT; PLATELET SUFFICIENCY LOW (NORMAL); TOTAL CELLS COUNTED 100 #CELLS
[2021-09-22 08:00] VITALS: BP 127/38
[2021-09-22 12:00] VITALS: BP 123/67
[2021-09-22 16:00] VITALS: BP 109/53
[2021-09-22 20:00] VITALS: BP 105/56
[2021-09-23] VITALS (9 sets, daily range): BP systolic 122–141; BP diastolic 56–69
[2021-09-23 06:30] LABS: ALKALINE PHOSPHATASE 45 U/L (45-117); BUN 14 mg/dl (7-24); CHLORIDE 107 mmol/L (98-107); CREATININE 0.78 mg/dL (0.70-1.30); LDH 198 U/L (87-241); POTASSIUM 4.1 mmol/L (3.5-5.1); SGOT/AST 15 IU/L (3-35); SGPT/ALT 20 U/L (12-78); SODIUM 142 mmol/L (136-145); TOTAL PROTEIN 6.9 gm/dL (6.4-8.2)
[2021-09-23] MEDS ORDERED: CEFEPIME1 GM/50 ML IV (21:04)
[2021-09-24] VITALS (8 sets, daily range): BP systolic 110–158; BP diastolic 61–76
[2021-09-25] VITALS: BP 135/63
[2021-09-25 06:18] LABS: HEMATOCRIT 25.6 % (42.0-52.0); MEAN CELL VOLUME 78.5 fl (80.0-94.0); MEAN CORPUSCULAR HGB 21.8 pg (27.0-31.0); MEAN CORPUSCULAR HGB CONC 27.7 g/dl (33.0-37.0); PLATELET COUNT AUTOMATED 118 10*3/uL (130-400); RED BLOOD COUNT 3.26 10*6/uL (4.50-5.90); WHITE BLOOD COUNT 4.4 10*3/uL (4.8-10.8)
[2021-09-25 06:34] LABS: BUN 9 mg/dl (7-24); CHLORIDE 104 mmol/L (98-107); CREATININE 0.59 mg/dL (0.70-1.30); POTASSIUM 3.9 mmol/L (3.5-5.1); SODIUM 140 mmol/L (136-145)
[2021-09-25 08:00] VITALS: BP 120/61
[2021-09-25 08:04] LABS: MANUAL DIFF REFLEX YES
[2021-09-25 08:11] LABS: BASOPHILS 1 % (0-1); PLATELET SUFFICIENCY LOW (NORMAL); TOTAL CELLS COUNTED 100 #CELLS
[2021-09-25 08:12] LABS: MICROCYTOSIS SLIGHT; POLYCHROMASIA SLIGHT; STOMATOCYTE FEW
[2021-09-25 08:13] LABS: OVALOCYTES FEW
[2021-09-25 12:00] VITALS: BP 128/69
[2021-09-25 16:00] VITALS: BP 137/70
[2021-09-25 20:00] VITALS: BP 133/74
[2021-09-26] VITALS: BP 120/78
[2021-09-26 08:00] VITALS: BP 122/65
[2021-09-26 12:00] VITALS: BP 116/60
[2021-09-26 16:00] VITALS: BP 114/66
[2021-09-26 20:00] VITALS: BP 123/61
[2021-09-27] VITALS: BP 123/73
[2021-09-27 06:07] LABS: BUN 17 mg/dl (7-24); CHLORIDE 100 mmol/L (98-107); CREATININE 0.68 mg/dL (0.70-1.30); SODIUM 140 mmol/L (136-145)
[2021-09-27 06:20] LABS: HEMATOCRIT 28.3 % (42.0-52.0); MEAN CELL VOLUME 78.2 fl (80.0-94.0); MEAN CORPUSCULAR HGB 21.8 pg (27.0-31.0); MEAN CORPUSCULAR HGB CONC 27.9 g/dl (33.0-37.0); PLATELET COUNT AUTOMATED 156 10*3/uL (130-400); RED BLOOD COUNT 3.62 10*6/uL (4.50-5.90); WHITE BLOOD COUNT 5.1 10*3/uL (4.8-10.8)
[2021-09-27 06:41] LABS: MANUAL DIFF REFLEX YES
[2021-09-27 08:00] VITALS: BP 121/99
[2021-09-27 08:12] LABS: TOTAL CELLS COUNTED 100 #CELLS
[2021-09-27 08:13] LABS: MICROCYTOSIS SLIGHT; PLATELET SUFFICIENCY NORMAL (NORMAL)
[2021-09-27 12:00] VITALS: BP 110/57
== END 2021-09-27 14:05 | disposition home or self-care (01) | DRG 720 ==
LOC: ED 09:05 → EDHOLD 12:10 → ICCU 12:10 → 5E 12:10 → ICCU 14:22 → 5E 09-19 19:10 → ICCU 09-20 00:17 → 5E 09-22 17:40
PROVIDERS: Family Medicine; Internal Medicine; Internal Medicine Cardiovascular Disease; Internal Medicine Critical Care Medicine; Internal Medicine Infectious Disease; ADMIT Internal Medicine; ATTEND Internal Medicine
PROC: 30233N1 Transfusion of Nonautologous Red Blood Cells into Peripheral Vein, Percutaneous Approach (ICD-10-PCS; principal; 2021-09-16)
PROC: 0DJ08ZZ Inspection of Upper Intestinal Tract, Via Natural or Artificial Opening Endoscopic (ICD-10-PCS; 2021-09-17)
PROC: B24BZZ4 Ultrasonography of Heart with Aorta, Transesophageal (ICD-10-PCS; 2021-09-23)
PROC: 02HV33Z Insertion of Infusion Device into Superior Vena Cava, Percutaneous Approach (ICD-10-PCS; 2021-09-24)
PROC: B548ZZA Ultrasonography of Superior Vena Cava, Guidance (ICD-10-PCS; 2021-09-24)
DX: A41.01 Sepsis due to Methicillin susceptible Staphylococcus aureus (principal); J15.6 Pneumonia due to other Gram-negative bacteria; J96.01 Acute respiratory failure with hypoxia; K92.2 Gastrointestinal hemorrhage, unspecified; J44.1 Chronic obstructive pulmonary disease with (acute) exacerbation; I50.33 Acute on chronic diastolic (congestive) heart failure; E87.1 Hypo-osmolality and hyponatremia; Z20.822 Contact with and (suspected) exposure to COVID-19; E66.01 Morbid (severe) obesity due to excess calories; F31.9 Bipolar disorder, unspecified; J96.11 Chronic respiratory failure with hypoxia; D62 Acute posthemorrhagic anemia; R73.9 Hyperglycemia, unspecified; E55.9 Vitamin D deficiency, unspecified; E43 Unspecified severe protein-calorie malnutrition; J96.21 Acute and chronic respiratory failure with hypoxia; I11.0 Hypertensive heart disease with heart failure; Z88.8 Allergy status to other drugs, medicaments and biological substances; Z87.891 Personal history of nicotine dependence; Z82.49 Family history of ischemic heart disease and other diseases of the circulatory system; Z68.43 Body mass index [BMI] 50.0-59.9, adult

== ENCOUNTER → 2021-11-02 | Outpatient (CLI) | payer OTHER ==
[~2021-11-02] MED LIST changes: +CEFEPIME1 GM/50 ML IV; +COGENTIN0.5 MG PO; +CYCLOBENZAPRINE10 MG PO
[2021-11-02 09:47] LABS: BASO % 0.7 % (0.0-1.0); EOS # 0.1 10*3/uL (0.0-0.4); EOS % 2.8 % (1.0-4.0); HEMATOCRIT 25.5 % (42.0-52.0); LYMPH # 0.5 10*3/uL (1.3-4.4); MEAN CORPUSCULAR HGB 20.6 pg (27.0-31.0); MEAN CORPUSCULAR HGB CONC 28.6 g/dl (33.0-37.0); MONO # 0.3 10*3/uL (0.1-1.0); MONO % 11.6 % (3.0-9.0); NEUT # 1.9 10*3/uL (2.3-7.9); NEUT % 66.5 % (47.0-73.0); PLATELET COUNT AUTOMATED 177 10*3/uL (130-400); RED BLOOD COUNT 3.54 10*6/uL (4.50-5.90); RED CELL DISTRI WIDTH 21.2 % (0-14.5); WHITE BLOOD COUNT 2.8 10*3/uL (4.8-10.8)
[2021-11-02 10:37] LABS: ALKALINE PHOSPHATASE 80 U/L (45-117); BUN 9 mg/dl (7-24); CHLORIDE 108 mmol/L (98-107); CREATININE 0.85 mg/dL (0.70-1.30); POTASSIUM 3.8 mmol/L (3.5-5.1); SGOT/AST 13 IU/L (3-35); SGPT/ALT 11 U/L (12-78); SODIUM 138 mmol/L (136-145)
== END | disposition home or self-care (01) ==
LOC: LAB 09:30
PROVIDERS: ATTEND Internal Medicine
DX: R78.81 Bacteremia (principal)